=== PATIENT | female | born 1955 | race Caucasian/White ===

== ENCOUNTER 2017-03-22 23:22 | Inpatient (IN) | payer BC, OTHER ==
[~2017-03-22] VITALS: Ht 167.6 cm; Wt 84.5 kg
[~2017-03-22 23:22] MED LIST: ADVAIR 250/28 DISKU1 IH; ALLERGY RELIEF10 MG PO; ALPRAZOLAM PO; ALPRAZOLAM1 MG PO; AMBIEN 10MG10 M1 PO; AMBIEN CR6.25 MG PO; AMBIEN12.5 MG PO; ASPIRIN 32325 MG/TAB PO; ATIVAN 0.50.5 MG/TAB PO; ATIVAN0.5 MG PO; ATIVAN1 MG PO; BENZACLIN 5%-1%1 GEL TP; CEPHALEXIN500 M1 PO; DOXYCYCLINE100 M3 PO; FLEXERIL10 MG PO; GINGER250 MG PO; IRON324 M1 PO; LAMICTAL XR100 MG PO; LAMICTAL150 MG PO; LAMICTAL200 MG PO; LITHIUM 30300 MG/CAP PO; LITHIUM CARBON300 M1 PO; LORTAB 5/500 501 TAB PO; LUNESTA; MAGNESIUM/ZINC PO; MELATONIN CR3 MG PO; MIDRIN; MIRALAX 17GM PK1 PKT PO; NEURONTIN100 MG PO; NEXIUM40 MG PO; NORCO 325 MG-51 TAB PO; NORCO 325 MG-7.1 TAB PO; PERCOCET 325 MG1 TA2 PO; PERCOCET 500 MG1 TAB PO; TRAZADONE HYDR100 MG PO; TRAZODONE100 MG PO; ULTRAM 50MG TAB50 MG PO; ULTRAM ER100 MG PO; VALACYCLOVIR HYD1 GM PO; VALISONE TP; ZOLOFT 100MG100 MG PO; ZOLOFT100 MG PO; ZOLPIDEM10 MG PO; [UNRECOGNIZED DRUG - CODE]
[2017-03-23 00:05] LABS: BASO # 0.1 (0.0-0.2); BASO % 1.1 % (0.0-2.0); EOS # 0.1 (0.0-0.7); EOS % 1.4 % (0-4.0); GRAN # 4.5 (1.4-6.5); GRAN % 61.8 % (42.2-75.2); HEMATOCRIT 41.7 % (37.0-47.0); HEMOGLOBIN 13.8 g/dl (12.5-16.0); LYMPH # 1.7 (1.2-3.4); LYMPH % 23.9 % (20.0-51.0); MEAN CELL VOLUME 97 fl (80.0-100.0); MEAN CORPUSCULAR HEMOGLOBIN 32 pg (27.0-31.0); MEAN CORPUSCULAR HGB CONC 33 g/dl (33.0-37.0); MEAN PLATELET VOLUME 10.5 fl (7.4-10.4); MONO # 0.8 (0.1-0.6); MONO % 11.4 % (1.7-9.3); PLATELET COUNT 216 K/mm3 (130-400); RED BLOOD COUNT 4.31 M/mm3 (4.10-5.30); REDCELL DISTRIBUTION WIDTH-CV 14.5 % (11.5-14.5)
[2017-03-23 00:36] LABS: ALANINE AMINOTRANSFERASE 46 U/L (9-52); ALKALINE PHOSPHATASE 98 U/L (50-136); ANION GAP 9 mmol/L (7-16); AST,SGOT 48 U/L (15-37); BILIRUBIN,TOTAL 0.4 mg/dL (0.0-1.0); BLOOD UREA NITROGEN 9 mg/dL (7-17); CALCIUM 8.7 mg/dL (8.4-10.2); CARBON DIOXIDE 22 mmol/L (22-30); CHLORIDE 105 mmol/L (98-107); CREATININE, serum 0.97 mg/dL (0.52-1.25); GLUCOSE 128 mg/dL (74-106); POTASSIUM 3.9 mmol/L (3.4-5.0); SODIUM 136 mmol/L (137-145); TOTAL PROTEIN 7.5 gm/dL (6.4-8.2)
[2017-03-23 00:40] LABS: INR 1.1 (0.8-3.0); PROTHROMBIN TIME 13.3 SECONDS (9.7-12.8)
[2017-03-23 00:48] LABS: TROPONIN-I < 0.012 ng/mL (0.000-0.034)
[2017-03-23 04:11] LABS: ARTERIAL BLD GAS TCO2 CT 19.9; ARTERIAL BLOOD GAS BASE EXCESS -4.5 (-2-2); ARTERIAL BLOOD GAS PCO2 30.7 mmHg (35-45); ARTERIAL BLOOD GAS PO2 71.2 mmHg (80-100); ARTERIAL BLOOD GAS pH 7.41 (7.35-7.45)
[2017-03-23 05:33] VITALS: PULSE 99; TEMP 100
[2017-03-23] MEDS ORDERED: KLONOPIN 0.5MG0.5 MG PO (07:46)
[2017-03-23] MEDS ORDERED: CLARITIN 1010 MG/TAB PO (07:46)
[2017-03-23] MEDS ORDERED: REMERON 15M15 MG/TA1 PO (07:47)
[2017-03-23] MEDS ORDERED: LAMICTAL XR100 MG PO (07:48)
[2017-03-23] MEDS ORDERED: LAMICTAL XR200 MG PO (07:49)
[2017-03-23 08:55] VITALS: BP 138/82; PULSE 95; TEMP 99.8
[2017-03-23 13:18] VITALS: BP 152/80; PULSE 67; TEMP 98.6
[2017-03-23 16:45] VITALS: BP 128/61; PULSE 99; TEMP 99.6
[2017-03-23 20:59] VITALS: BP 137/89; PULSE 110; TEMP 100.5
[2017-03-23 23:24] VITALS: BP 128/63; PULSE 105; TEMP 102
[2017-03-24] VITALS (7 sets, daily range): BP systolic 112–157; BP diastolic 37–113; PULSE 52–116; TEMP 98.5–103.2
[2017-03-24 00:21] LABS: CREATININE, serum 0.89 mg/dL (0.52-1.25); POTASSIUM 3.9 mmol/L (3.4-5.0)
[2017-03-24 04:05] LABS: BASO % 0.3 % (0.0-2.0); GRAN % 74.7 % (42.2-75.2); LYMPH # 0.9 (1.2-3.4); LYMPH % 12.9 % (20.0-51.0); MEAN CELL VOLUME 98 fl (80.0-100.0); MEAN CORPUSCULAR HEMOGLOBIN 32 pg (27.0-31.0); MEAN CORPUSCULAR HGB CONC 33 g/dl (33.0-37.0); MEAN PLATELET VOLUME 10.3 fl (7.4-10.4); MONO # 0.8 (0.1-0.6); MONO % 11.7 % (1.7-9.3); PLATELET COUNT 198 K/mm3 (130-400); RED BLOOD COUNT 4.09 M/mm3 (4.10-5.30); REDCELL DISTRIBUTION WIDTH-CV 14.7 % (11.5-14.5)
[2017-03-24 04:17] LABS: CALCIUM 8.8 mg/dL (8.4-10.2); CREATININE, serum 0.93 mg/dL (0.52-1.25); POTASSIUM 3.7 mmol/L (3.4-5.0)
[2017-03-25 03:41] VITALS: BP 121/59; PULSE 81; TEMP 99.2
[2017-03-25 06:40] VITALS: BP 133/76; PULSE 82; TEMP 98.4
[2017-03-25 06:43] LABS: HEMATOCRIT 38.5 % (37.0-47.0); HEMOGLOBIN 12.6 g/dl (12.5-16.0); MEAN CELL VOLUME 97 fl (80.0-100.0); MEAN CORPUSCULAR HEMOGLOBIN 32 pg (27.0-31.0); MEAN CORPUSCULAR HGB CONC 33 g/dl (33.0-37.0); PLATELET COUNT 209 K/mm3 (130-400); RED BLOOD COUNT 3.96 M/mm3 (4.10-5.30); REDCELL DISTRIBUTION WIDTH-CV 14.7 % (11.5-14.5)
[2017-03-25 07:09] LABS: CALCIUM 8.9 mg/dL (8.4-10.2); CREATININE, serum 0.86 mg/dL (0.52-1.25); POTASSIUM 3.8 mmol/L (3.4-5.0)
[2017-03-25 09:22] LABS: BAND 5 % (0-10); LYMPHOCYTE 32 % (20.0-51.0); METAMYELOCYTE 1 % (0-0); NEUTROPHILS 51 % (42.0-75.2)
[2017-03-25 09:23] LABS: PLATELET ESTIMATE NORMAL (NORMAL)
[2017-03-25 10:42] VITALS: BP 131/68; PULSE 90; TEMP 98.6
[2017-03-25] MEDS ORDERED: PROAIR HFA0.09 MG/AC IH (13:01)
[2017-03-25] MEDS ORDERED: AEROCHAMBER1 DEV IH ×2 (13:02)
[2017-03-25 15:52] VITALS: BP 139/85; PULSE 88; TEMP 98.2
== END 2017-03-25 19:26 | disposition home or self-care (01) | DRG 203 ==
LOC: COL.ER 23:22 → MEDICAL 03-23 04:35
PROVIDERS: Emergency Medicine; Internal Medicine; Nurse Practitioner Family
DX: J20.9 Acute bronchitis, unspecified (principal); I10 Essential (primary) hypertension; F31.9 Bipolar disorder, unspecified; F32.9 Major depressive disorder, single episode, unspecified; F41.9 Anxiety disorder, unspecified; B97.81 Human metapneumovirus as the cause of diseases classified elsewhere; G47.00 Insomnia, unspecified; G40.909 Epilepsy, unspecified, not intractable, without status epilepticus; Z87.891 Personal history of nicotine dependence
CPT/HCPCS: 99222-AI; 99232-AI; 99239; J0696; J1200; J1650; J2930; J7030; J7512; Q9967

== ENCOUNTER 2017-09-24 10:22 | Emergency (ER) | payer BC, OTHER ==
[~2017-09-24] VITALS: Ht 167.6 cm; Wt 81.8 kg
[~2017-09-24 10:22] MED LIST changes: +AEROCHAMBER1 DEV IH; +CLARITIN 1010 MG/TAB PO; +KLONOPIN 0.5MG0.5 MG PO; +LAMICTAL XR200 MG PO; +PROAIR HFA0.09 MG/AC IH; +REMERON 15M15 MG/TA1 PO
[2017-09-24 10:57] LABS: COLLECTION METHOD CLEAN CATCH
[2017-09-24 11:06] LABS: MUCOUS Present /lpf; PH 7 (5-8); URINE APPEARANCE Clear; URINE BACTERIA Rare /hpf; URINE BILIRUBIN Negative (NEGATIVE); URINE BLOOD Negative (NEGATIVE); URINE COLOR Yellow; URINE GLUCOSE Negative (NEGATIVE); URINE KETONE 1+ (NEGATIVE); URINE LEUKOCYTE ESTERASE Negative (NEGATIVE); URINE NITRATE Negative (NEGATIVE); URINE PROTEIN(semi-quant) 1+ (NEGATIVE); URINE RBC 0-2 /hpf; URINE UROBILINOGEN Negative (NEGATIVE)
[2017-09-24 11:09] LABS: BASO # 0.1 (0.0-0.2); BASO % 0.5 % (0.0-2.0); EOS # 0.1 (0.0-0.7); EOS % 0.7 % (0-4.0); GRAN # 8.5 (1.4-6.5); HEMATOCRIT 42.5 % (37.0-47.0); HEMOGLOBIN 14.9 g/dl (12.5-16.0); LYMPH # 1.4 (1.2-3.4); LYMPH % 13.3 % (20.0-51.0); MEAN CELL VOLUME 93 fl (80.0-100.0); MEAN CORPUSCULAR HEMOGLOBIN 33 pg (27.0-31.0); MEAN CORPUSCULAR HGB CONC 35 g/dl (33.0-37.0); MEAN PLATELET VOLUME 10.3 fl (7.4-10.4); MONO # 0.7 (0.1-0.6); MONO % 6.2 % (1.7-9.3); PLATELET COUNT 248 K/mm3 (130-400); RED BLOOD COUNT 4.56 M/mm3 (4.10-5.30); REDCELL DISTRIBUTION WIDTH-CV 13.4 % (11.5-14.5)
[2017-09-24 11:33] LABS: ALBUMIN 4.6 gm/dL (3.5-5.0); BILIRUBIN,TOTAL 0.9 mg/dL (0.0-1.0); CALCIUM 9.6 mg/dL (8.4-10.2); CREATININE, serum 0.91 mg/dL (0.52-1.25); POTASSIUM 3.7 mmol/L (3.4-5.0); TOTAL PROTEIN 8.2 gm/dL (6.4-8.2)
[2017-09-24 12:11] VITALS: TEMP 98.4
[2017-09-24] MEDS ORDERED: ANTIVERT 12.512.5 MG PO (13:59)
[2017-09-24] MEDS ORDERED: NORVASC 5MG5 MG/TAB PO (13:59)
[2017-09-24 14:09] VITALS: BP 121/68; PULSE 98
== END 2017-09-24 15:41 | disposition home or self-care (01) ==
LOC: COL.ER 10:22
PROVIDERS: Emergency Medicine; Physician Assistant
DX: R42 Dizziness and giddiness (principal); I10 Essential (primary) hypertension; F31.9 Bipolar disorder, unspecified; F17.210 Nicotine dependence, cigarettes, uncomplicated; Z90.49 Acquired absence of other specified parts of digestive tract; Z98.51 Tubal ligation status; Z98.890 Other specified postprocedural states
CPT/HCPCS: J2060; J2405

== ENCOUNTER 2018-02-17 08:33 | Emergency (ER) | payer BC, OTHER ==
[~2018-02-17] VITALS: Ht 167.6 cm; Wt 78.6 kg
[~2018-02-17 08:33] MED LIST changes: +ANTIVERT 12.512.5 MG PO; +NORVASC 5MG5 MG/TAB PO
[2018-02-17 08:49] VITALS: TEMP 97
[2018-02-17 09:16] LABS: BASO % 0.3 % (0.0-2.0); EOS # 0.1 (0.0-0.7); EOS % 0.5 % (0-4.0); GRAN # 7.6 (1.4-6.5); GRAN % 77.2 % (42.2-75.2); HEMOGLOBIN 13.8 g/dl (12.5-16.0); LYMPH # 1.4 (1.2-3.4); LYMPH % 14.2 % (20.0-51.0); MEAN CELL VOLUME 100 fl (80.0-100.0); MEAN CORPUSCULAR HEMOGLOBIN 34 pg (27.0-31.0); MEAN CORPUSCULAR HGB CONC 34 g/dl (33.0-37.0); MONO # 0.7 (0.1-0.6); MONO % 7.4 % (1.7-9.3); PLATELET COUNT 305 K/mm3 (130-400); REDCELL DISTRIBUTION WIDTH-CV 13.9 % (11.5-14.5)
[2018-02-17] MEDS ORDERED: ASPIRIN 81M81 MG/TA2 PO (09:28)
[2018-02-17] MEDS ORDERED: OMEGA-3 1000 MG1 CAP PO (09:28)
[2018-02-17 09:32] LABS: ALANINE AMINOTRANSFERASE 13 U/L (9-52); ALBUMIN 4.5 gm/dL (3.5-5.0); ALKALINE PHOSPHATASE 66 U/L (50-136); ANION GAP 7 mmol/L (7-16); AST,SGOT 31 U/L (15-37); BILIRUBIN,TOTAL 0.4 mg/dL (0.0-1.0); BLOOD UREA NITROGEN 17 mg/dL (7-17); CALCIUM 9.7 mg/dL (8.4-10.2); CARBON DIOXIDE 26 mmol/L (22-30); CHLORIDE 107 mmol/L (98-107); CREATININE, serum 0.93 mg/dL (0.52-1.25); GLUCOSE 99 mg/dL (74-106); POTASSIUM 4.1 mmol/L (3.4-5.0); SODIUM 140 mmol/L (137-145); TOTAL PROTEIN 8.4 gm/dL (6.4-8.2)
[2018-02-17 09:36] LABS: C-REACTIVE PROTEIN < 0.5 mg/dL (0.0-0.9)
[2018-02-17] MEDS ORDERED: LOPRESSOR 225 MG/TAB PO (10:01)
[2018-02-17 10:11] VITALS: BP 183/95; PULSE 75
== END 2018-02-17 10:15 | disposition home or self-care (01) ==
LOC: COL.ER 08:33
PROVIDERS: Family Medicine
DX: I10 Essential (primary) hypertension (principal); F31.9 Bipolar disorder, unspecified; G40.909 Epilepsy, unspecified, not intractable, without status epilepticus; Z79.82 Long term (current) use of aspirin
CPT/HCPCS: J2405; J7030

== ENCOUNTER 2018-06-28 00:15 | Observation (INO) | payer BC, OTHER ==
[2018-06-28] VITALS (11 sets, daily range): BP systolic 108–173; BP diastolic 46–100; PULSE 56–99; TEMP 97.4–99.3
[~2018-06-28] VITALS: Ht 167.7 cm; Wt 74.8 kg
[~2018-06-28 00:15] MED LIST changes: +ASPIRIN 81M81 MG/TA2 PO; +LOPRESSOR 225 MG/TAB PO; +OMEGA-3 1000 MG1 CAP PO
[2018-06-28 00:42] LABS: BASO % 0.4 % (0.0-2.0); EOS % 0.2 % (0-4.0); GRAN # 7.9 (1.4-6.5); GRAN % 78.1 % (42.2-75.2); HEMATOCRIT 40.2 % (37.0-47.0); HEMOGLOBIN 13.5 g/dl (12.5-16.0); LYMPH # 1.3 (1.2-3.4); LYMPH % 13.1 % (20.0-51.0); MEAN CELL VOLUME 97 fl (80.0-100.0); MEAN CORPUSCULAR HEMOGLOBIN 33 pg (27.0-31.0); MEAN CORPUSCULAR HGB CONC 34 g/dl (33.0-37.0); MEAN PLATELET VOLUME 10.5 fl (7.4-10.4); MONO # 0.8 (0.1-0.6); PLATELET COUNT 223 K/mm3 (130-400); RED BLOOD COUNT 4.15 M/mm3 (4.10-5.30); REDCELL DISTRIBUTION WIDTH-CV 13.7 % (11.5-14.5)
[2018-06-28 00:52] LABS: ALBUMIN 4.6 gm/dL (3.5-5.0); BILIRUBIN,TOTAL 0.8 mg/dL (0.0-1.0); CALCIUM 10.4 mg/dL (8.4-10.2); CREATININE, serum 0.91 (0.52-1.25); POTASSIUM 3.7 mmol/L (3.4-5.0); TOTAL PROTEIN 8.7 gm/dL (6.4-8.2)
[2018-06-28 01:03] LABS: TROPONIN-I 0.018 ng/mL (0.000-0.035)
--- NOTE | 2018-06-28 06:25 | NUR ---
Pt arrived to room 308, transferred by wheelchair by ED staff. Pt oriented to room, unit policies et current POC. Questions invited et answered, pt verbalized understanding. Denies needs at this time. Call light in reach.
[2018-06-28] MEDS ORDERED: ZYRTEC 10MG10 MG PO (08:43)
[2018-06-28] MEDS ORDERED: KLONOPIN 0.5MG0.5 MG PO (08:43)
[2018-06-28] MEDS ORDERED: VALTREX 50500 MG/TAB PO (08:46)
[2018-06-28] MEDS ORDERED: TYLENOL 500MG500 MG PO (08:47)
[2018-06-28] MEDS ORDERED: TRIAMCINOLONE A15 G3 TP (08:48)
[2018-06-28] MEDS ORDERED: DESYREL DIVIDO150 M1 PO (08:49)
[2018-06-28] MEDS ORDERED: EYE DROP ORIGIN15 ML OP (08:54)
--- NOTE | 2018-06-28 09:02 | NUR ---
up to the chair in the room. The chair alarm is in place and the patient was given education on the need for assistance around the room, due to vertigo and left leg weakness. The call light is in place.
--- NOTE | 2018-06-28 10:37 | NUR ---
Plan for stress test at 1430 today. The patient is NPO at this time.
--- NOTE | 2018-06-28 12:11 | NUR ---
Initial visit; Patient thanked Comparative Sociology Professor for stopping, talking with her about her anxiety and steps to take to take better care of herself thus helping her anxiety. Comparative Sociology Professor recommended additional helping resources withing the community.
--- NOTE | 2018-06-28 16:36 | NUR ---
SW met with patient to discuss discharge planning. Patient lives at home alone. Patient's PCP is Dr Christine and she obtains prescriptions from [facility]. Patient uses a walker for ambulation but no other DME is reported and patient does not use any home health services. Patient does not have a DPOA but she reports does not have anyone she could designate to be her DPOA. Patient mentioned she is likely going to be evicted when she goes back to her appartment because she has not been able to clean and has bed bugs. SW inquired where patient plans to go if she does get evicted. Patient reports she is planning to go to the emergency detention and then find another apartment. Patient is unsure how to find a new apartment. SW provided the [employer] office phone number. Patient also reported she would like to receive mental health services. Patient is seen by someone at [facility] every 6 months for medication management but she does not see anyone more often than that. SW inquired the reason patient needs mental health services (besides reported mental health issues). Patient reports she has a lot of stress. SW reported that she will contact [facility] to find resource for patient and possibly schedule a follow up appointment. SW will follow up with patient tomorrow.
--- NOTE | 2018-06-28 19:03 | NUR ---
Report given to LAUREN Duran to resume care.
--- NOTE | 2018-06-28 22:37 | NUR ---
SHIFT ASSESSMENT COMPLETED AT 1930. AT TIME OF ASSESSMENT PATIENT SITTING ON SIDE OF BED. REPORTING BEING DIZZY AND HAVING HEADACHE. SEE EMAR FOR MECHLIZINE AND TYLENOL GIVEN PER ORDERS. DENIES VISION CHANGES, SOA, OR CHEST PAIN. ATTIDE ANXIOUS BUT PLEASANT AND COOPERATIVE. DENIES FURTHER NEEDS AT END OF VISIT.
--- NOTE | 2018-06-29 00:51 | NUR ---
Patient requested eye drops. Kim SILVEIRA added order. House supervisior notified for receive from pharmacy.
--- NOTE | 2018-06-29 01:32 | NUR ---
PATIENT REQUESTING TYLENOL FOR HEADACHE WITH REPORTS OF PAIN @ 4 ON 0-10 NUMERICAL PAIN SCALE. SEE EMAR FOR MEDICATIONS ADMINISTERED. PATIENT VERBALIZING IN 3RD PERSON. A/O X 4. ATTITUDE CALM AND COOPERATIVE. LAYING IN BED AWAKE. DENIES FURTHER NEEDS AFTER VISIT. WILL CONTINUE TO MONITOR VERBALIZATIONS CLOSELY.
[2018-06-29 04:00] VITALS: BP 135/74; PULSE 62; TEMP 97.9
--- NOTE | 2018-06-29 06:50 | NUR ---
Report given to LAUREN Perez
[2018-06-29 07:13] VITALS: BP 150/81; PULSE 66; TEMP 98.7
--- NOTE | 2018-06-29 07:48 | NUR ---
ASSESSMENT COMPLETE.PATIENT AWAKE,A/OX3.C/O PAIN TO BACK AND RATES IT AT 5/10.LSCTA.VSS.ALL MEDS GIVEN.REPORTS VERTIGO IS GETTING BETTER.REPORTS LEFT LEG WEAKNESS.NO OTHER NEEDS VOICED AT THIS TIME.WILL CONTINUE TO MONITOR.CALL LIGHT IN REACH
[2018-06-29 08:14] LABS: BASO # 0.1 (0.0-0.2); BASO % 0.7 % (0.0-2.0); EOS # 0.3 (0.0-0.7); EOS % 3.5 % (0-4.0); GRAN # 4.9 (1.4-6.5); GRAN % 60.1 % (42.2-75.2); HEMATOCRIT 39.4 % (37.0-47.0); HEMOGLOBIN 12.7 g/dl (12.5-16.0); LYMPH # 2.2 (1.2-3.4); LYMPH % 26.8 % (20.0-51.0); MEAN CELL VOLUME 99 fl (80.0-100.0); MEAN CORPUSCULAR HEMOGLOBIN 32 pg (27.0-31.0); MEAN CORPUSCULAR HGB CONC 32 g/dl (33.0-37.0); MEAN PLATELET VOLUME 10.7 fl (7.4-10.4); MONO # 0.7 (0.1-0.6); MONO % 8.7 % (1.7-9.3); PLATELET COUNT 223 K/mm3 (130-400); RED BLOOD COUNT 3.97 M/mm3 (4.10-5.30); REDCELL DISTRIBUTION WIDTH-CV 13.9 % (11.5-14.5)
[2018-06-29 08:34] LABS: CALCIUM 9.8 mg/dL (8.4-10.2); CREATININE, serum 0.93 (0.52-1.25)
--- NOTE | 2018-06-29 11:03 | NUR ---
Follow-up visit; Patient thanked for looking in on her again today states she is doing better. Textile Designer wished Shellie well.
[2018-06-29 11:08] VITALS: BP 150/70; PULSE 58; TEMP 98
--- NOTE | 2018-06-29 11:15 | NUR ---
SW met with patient to discuss discharge today. Patient requested SW provide a list of churches in [place] and also the phone number to the [facility]. SW provided those resources. Patient also will need a blood pressure cuff and would like to bill insurance for it. Patient chose [facility] to provide the cuff. SW contacted [facility] about the order. They reported that insurance does not cover the cost of a blood pressure cuff and [facility] has denied coverage in the past. SW will follow up with patient about this.
--- NOTE | 2018-06-29 13:37 | NUR ---
PT DISCHARGE HOME AT THIS TIME.ALL DISCHARGE INSTRUCTIONS REVIEWED.ALL MEDS RETURNED TO PATIENT.IV AND TELEMETRY DISCONTINUED.ALL QUESTIONS ANSWERED.ALL BELONGINGS TAKEN.VC STAFF ESCORTED PATIENT OUT.
== END 2018-06-29 13:39 | disposition home or self-care (01) ==
LOC: COL.ER 00:15 → MEDICAL 04:40
PROVIDERS: Emergency Medicine; Nurse Practitioner Family; ADMIT Internal Medicine
DX: R42 Dizziness and giddiness (principal); I10 Essential (primary) hypertension; R94.31 Abnormal electrocardiogram [ECG] [EKG]; J45.909 Unspecified asthma, uncomplicated; F41.9 Anxiety disorder, unspecified; F32.9 Major depressive disorder, single episode, unspecified; E16.2 Hypoglycemia, unspecified; Z79.82 Long term (current) use of aspirin; Z87.891 Personal history of nicotine dependence; Z80.42 Family history of malignant neoplasm of prostate
CPT/HCPCS: A9500; G0378; J2060; J2550; J2785; J7030

== ENCOUNTER 2018-07-16 10:15 | Outpatient (RCR) | payer BC, OTHER ==
[~2018-07-16 10:15] MED LIST changes: +DESYREL DIVIDO150 M1 PO; +EYE DROP ORIGIN15 ML OP; +TRIAMCINOLONE A15 G3 TP; +TYLENOL 500MG500 MG PO; +VALTREX 50500 MG/TAB PO; +ZYRTEC 10MG10 MG PO
== END 2018-09-29 | disposition still patient (30) ==
LOC: WSPT
DX: R51 Headache (principal); R42 Dizziness and giddiness

== ENCOUNTER 2019-04-28 08:15 | Outpatient (RCR) | payer MEDICARE, BC | END 2019-07-05 | disposition home or self-care (01) | LOC: MKS.ESL.PT | DX: M70.72 Other bursitis of hip, left hip (principal) ==

== ENCOUNTER 2019-11-24 08:15 | Outpatient (RCR) | payer MEDICARE, BC, OTHER | END 2020-01-09 | disposition home or self-care (01) | LOC: MKS.ESL.PT | DX: M54.5 Low back pain (principal) | CPT/HCPCS: G0283-GP ==

== ENCOUNTER 2020-01-29 10:53 | Emergency (ER) | payer MEDICARE, BC, OTHER ==
[~2020-01-29] VITALS: Ht 167.6 cm; Wt 72.3 kg
[2020-01-29 10:56] VITALS: TEMP 98
[2020-01-29] MEDS ORDERED: NORCO 325 MG-51 TAB PO (11:36)
[2020-01-29 11:41] VITALS: BP 121/71; PULSE 64
== END 2020-01-29 11:45 | disposition home or self-care (01) ==
LOC: COL.ER 10:53
DX: M70.62 Trochanteric bursitis, left hip (principal); F31.9 Bipolar disorder, unspecified; Z87.891 Personal history of nicotine dependence; Z79.82 Long term (current) use of aspirin
CPT/HCPCS: J1040

== ENCOUNTER 2020-04-30 07:56 | Emergency (ER) | payer MEDICARE, BC, OTHER ==
[~2020-04-30] VITALS: Ht 165.1 cm; Wt 71.4 kg
[2020-04-30 08:00] VITALS: TEMP 98.3
[2020-04-30 08:37] LABS: BASO # 0.1 (0.0-0.2); BASO % 0.7 % (0.0-2.0); EOS # 0.1 (0.0-0.7); EOS % 1.2 % (0-4.0); GRAN # 4.4 (1.4-6.5); HEMATOCRIT 38.8 % (37.0-47.0); HEMOGLOBIN 12.9 g/dl (12.5-16.0); LYMPH # 1.6 (1.2-3.4); LYMPH % 23.2 % (20.0-51.0); MEAN CELL VOLUME 98 fl (80.0-100.0); MEAN CORPUSCULAR HEMOGLOBIN 32 pg (27.0-31.0); MEAN CORPUSCULAR HGB CONC 33 g/dl (33.0-37.0); MEAN PLATELET VOLUME 10.7 fl (7.4-10.4); MONO # 0.6 (0.1-0.6); MONO % 9.6 % (1.7-9.3); PLATELET COUNT 193 K/mm3 (130-400); RED BLOOD COUNT 3.98 M/mm3 (4.10-5.30); REDCELL DISTRIBUTION WIDTH-CV 13.7 % (11.5-14.5)
[2020-04-30 09:16] VITALS: BP 157/82; PULSE 78
== END 2020-04-30 09:17 | disposition home or self-care (01) ==
LOC: COL.ER 07:56
PROVIDERS: Emergency Medicine
DX: S80.02XA Contusion of left knee, initial encounter (principal); S80.01XA Contusion of right knee, initial encounter; F31.9 Bipolar disorder, unspecified; G40.909 Epilepsy, unspecified, not intractable, without status epilepticus; Z87.891 Personal history of nicotine dependence; Z79.82 Long term (current) use of aspirin; W01.10XA Fall on same level from slipping, tripping and stumbling with subsequent striking against unspecified object, initial encounter

== ENCOUNTER 2020-11-02 11:49 | Emergency (ER) | payer MEDICARE, BC, OTHER ==
[~2020-11-02] VITALS: Ht 167.6 cm; Wt 71.4 kg
[2020-11-02 11:55] VITALS: TEMP 97.8
[2020-11-02 14:06] LABS: CALCIUM 9.7 mg/dL (8.4-10.2); CREATININE, serum 1.04 mg/dL (0.57-1.11); POTASSIUM 4.2 mmol/L (3.5-4.5)
[2020-11-02 14:24] VITALS: BP 190/102; PULSE 78
== END 2020-11-02 14:25 | disposition home or self-care (01) ==
LOC: COL.ER 11:49
PROVIDERS: Emergency Medicine
DX: R20.2 Paresthesia of skin (principal); F31.9 Bipolar disorder, unspecified; I10 Essential (primary) hypertension; Z79.899 Other long term (current) drug therapy

== ENCOUNTER 2021-10-25 10:15 | Emergency (ER) | payer MEDICARE, BC, OTHER ==
[~2021-10-25] VITALS: Ht 167.6 cm; Wt 85.0 kg
[2021-10-25 10:53] LABS: COLLECTION METHOD CLEAN CATCH
[2021-10-25 11:01] LABS: SQUAMOUS EPITHELIAL 0-2 /hpf (0-10); URINE BACTERIA None Seen /hpf (NONE SEEN)
[2021-10-25 11:02] LABS: URINE APPEARANCE Clear (CLEAR/HAZY); URINE BLOOD Negative (NEGATIVE); URINE COLOR Yellow (YELLOW); URINE GLUCOSE Negative (NEGATIVE); URINE KETONE Negative (NEGATIVE); URINE NITRATE Negative (NEGATIVE); URINE PROTEIN(semi-quant) Negative (NEGATIVE); URINE UROBILINOGEN 0.2 E.U/dL (0.2-1.0)
[2021-10-25 12:20] VITALS: BP 153/93; PULSE 88; TEMP 97.8
== END 2021-10-25 12:20 | disposition home or self-care (01) ==
LOC: COL.ER 10:15
PROVIDERS: Nurse Practitioner
DX: R20.2 Paresthesia of skin (principal)

== ENCOUNTER 2022-03-06 12:45 | Outpatient (RCR) | payer MEDICARE, BC, OTHER | END 2022-03-11 | disposition home or self-care (01) | LOC: MKS.ESL.PT | DX: M25.512 Pain in left shoulder (principal) ==

== ENCOUNTER → 2022-04-29 16:16 | Outpatient (RCR) | payer MEDICARE, BC, OTHER | LOC: MKS.ESL.PT 03-12 13:00 | DX: M25.512 Pain in left shoulder (principal) ==

== ENCOUNTER 2023-09-14 10:16 | Day surgery (SDC) | payer MEDICARE, OTHER ==
[~2023-09-14] VITALS: Ht 162.6 cm; Wt 80.1 kg
[~2023-09-14 10:16] MED LIST changes: +ADVIL200 MG PO; +AMOXICILLIN 8751 TAB PO; +FERRO-TIME325 MG PO; +LEXAPRO 5MG5 MG; +LR 1,000 ML IV SCH; +LUNESTA3 MG PO; +MASON NATURAL2000 IU PO; +Ondansetron 4 MG/2 ML VIAL IV PRN; +PROTONIX 40MG T40 MG PO; +SEROQUEL 1100 MG/TAB PO; +SEROQUEL 2525 MG/TAB; +TOPROL XL 25MG25 MG PO; +TYLENOL 325MG325 MG PO; +XANAX .25M0.25 MG/TA PO
[2023-09-14] MEDS ORDERED: Lidocaine PF 2% (20 MG/ML) 5 ML VIAL ONE (11:05)
[2023-09-14 11:06] VITALS: BP 171/97; PULSE 76; TEMP 98
--- NOTE | 2023-09-14 11:12 | NUR ---
Patient admitted to [facility] at 1025. Admission assessments completed. 20G IV inserted into right hand, LR infusing without difficulty. Denies complaints. Oriented to call light, call light within reach. Resting in recliner chair. Med rec and allergies confirmed. Pt reports that her ride is with [employer] and that they will return at 1300. She has a number to call if we need them sooner.
[2023-09-14 12:12] VITALS: BP 138/85; PULSE 88
[2023-09-14 12:30] VITALS: BP 147/77; PULSE 87
[2023-09-14 12:45] VITALS: BP 150/74; PULSE 85
--- NOTE | 2023-09-14 14:52 | NUR ---
1212 PATIENT RETURNS TO [facility] VIA CART. PT AWAKE AND ALERT. RESPIRATIONS UNLABORED. AMBULATED TO RECLINER CHAIR WITH 2:1 SBA. PT DENIES NAUSEA OR ABDOMINAL PAIN. HOOKED UP TO MONITOR AND VS OBTAINED. CALL LIGHT AT SIDE AND NO FAMILY PRESENT. 1220 PATIENT TOLERATING HOT TEA AND MUFFIN WITHOUT NAUSEA OR DIFFICULTY SWALLOWING (EGD ONLY). 1230 DR. BARBER IN ROOM SPEAKING WITH PATIENT. 1240 D/C INSTRUCTIONS REVIEWED WITH PATIENT. PT VERBALIZED UNDERSTANDING AND A COPY OF INSTRUCTIONS PROVIDED IN D/C FOLDER. 1250 PATIENT DRESSES SELF. 1300 PATIENT DISCHARGED FROM UNIT VIA W/C TO A PERSONAL VEHICLE. PT LEFT HOSPITAL IN STABLE CONDITION.
== END 2023-09-14 13:00 | disposition home or self-care (01) ==
LOC: SDCO 10:16
DX: D12.3 Benign neoplasm of transverse colon (principal); D12.2 Benign neoplasm of ascending colon; D50.9 Iron deficiency anemia, unspecified; Z86.010 Personal history of colon polyps; K57.30 Diverticulosis of large intestine without perforation or abscess without bleeding; K64.0 First degree hemorrhoids; K44.9 Diaphragmatic hernia without obstruction or gangrene; K29.30 Chronic superficial gastritis without bleeding; Z79.899 Other long term (current) drug therapy
CPT/HCPCS: J2704